=== PATIENT | male | born 1985 | race Caucasian/White ===

== ENCOUNTER 2018-03-05 20:29 | Emergency (ER) | payer OTHER ==
[~2018-03-05] VITALS: Ht 185.4 cm; Wt 117.9 kg
[~2018-03-05 20:29] MED LIST: AUGMENTIN 875 M1 TAB PO; CLARITIN10 MG PO; CORDROL20 MG PO; FLEXERIL10 MG PO; HYDROCODONE BIT1 T11 PO; MOTRIN800 MG PO; NKHM; TORADOL10 MG PO; TYLENOL650 M1 PO; ZITHROMAX Z PA250 MG PO
[2018-03-05 20:34] VITALS: BP 142/64
[2018-03-05 20:49] LABS: BILIRUBIN NEGATIVE (NEGATIVE); BLOOD 1+ (NEGATIVE); CLARITY SL CLOUDY (CLEAR); COLOR YELLOW (YELLOW); GLUCOSE NEGATIVE (NEGATIVE); KETONE NEGATIVE (NEGATIVE); LEUKO ESTERASE TRACE (NEGATIVE); NITRITE NEGATIVE (NEGATIVE); PH 6.5 (5.0-9.0); SPECIFIC GRAVITY <= 1.005 (1.005-1.030); UROBILINOGEN 0.2 E.U./dl (0.2-1.0)
[2018-03-05 21:04] LABS: BACTERIA TRACE
[2018-03-05 21:09] LABS: BASO # 0.1 10*3/uL (0.0-0.1); BASO % 0.6 % (0.0-1.0); EOS # 0.1 10*3/uL (0.0-0.4); EOS % 0.5 % (1.0-4.0); HEMATOCRIT 44.2 % (42.0-52.0); HEMOGLOBIN 15.3 g/dl (14.0-18.0); LYMPH # 2.7 10*3/uL (1.3-4.4); LYMPH % 25.1 % (27.0-41.0); MEAN CORPUSCULAR HGB 29.1 pg (27.0-31.0); MEAN CORPUSCULAR HGB CONC 34.6 g/dl (33.0-37.0); MEAN PLATELET VOLUME 10.1 fl (9.6-12.3); MONO # 0.9 10*3/uL (0.1-1.0); MONO % 8.7 % (3.0-9.0); NEUT # 6.9 10*3/uL (2.3-7.9); NEUT % 64.8 % (47.0-73.0); PLATELET COUNT AUTOMATED 294 10*3/uL (130-400); RED BLOOD COUNT 5.26 10*6/uL (4.50-5.90); RED CELL DISTRI WIDTH 12.6 % (0-14.5); WHITE BLOOD COUNT 10.6 10*3/uL (4.8-10.8)
[2018-03-05 21:26] LABS: ALBUMIN 4.4 gm/dl (3.1-4.5); ALKALINE PHOSPHATASE 73 U/L (45-117); BUN 8 mg/dl (7-24); CHLORIDE 102 mmol/L (98-107); CREATININE 1.15 mg/dL (0.70-1.30); POTASSIUM 3.6 mmol/L (3.5-5.1); SGOT/AST 21 IU/L (3-35); SGPT/ALT 36 U/L (12-78); SODIUM 141 mmol/L (136-145); TOTAL PROTEIN 8.1 gm/dL (6.4-8.2)
[2018-03-05] MEDS ORDERED: CIPRO500 MG PO (21:50)
== END 2018-03-05 21:55 | disposition home or self-care (01) ==
LOC: ED 20:29
PROVIDERS: Emergency Medicine; Nurse Practitioner Family
DX: N39.0 Urinary tract infection, site not specified (principal); R31.9 Hematuria, unspecified; Z90.49 Acquired absence of other specified parts of digestive tract

== ENCOUNTER 2018-04-05 19:44 | Emergency (ER) | payer OTHER ==
[~2018-04-05] VITALS: Ht 185.4 cm; Wt 117.9 kg
--- NOTE | ~2018-04-05 | EKG ---
[place], [place] ELECTROCARDIOGRAM REPORT NAME: HANG STRICKLAND UNIT #: [id number] ROOM: DOCTOR: GUY ABBASI MD BIRTHDATE: [birth year] DOS: 04/05/2018 TIME: 2003 hours. Normal sinus rhythm at 85 beats per minute. The tracing is normal. No previous tracing is available for comparison. GUY ABBASI MD CM:EKGRPT:ELECTROCARDIOGRAM REPORT [id number] GUY ABBASI MD
[~2018-04-05 19:44] MED LIST changes: +CIPRO500 MG PO
[2018-04-05 19:46] VITALS: BP 171/101
[2018-04-05 20:06] LABS: BASO # 0.1 10*3/uL (0.0-0.1); BASO % 0.6 % (0.0-1.0); EOS % 0.4 % (1.0-4.0); HEMATOCRIT 44.7 % (42.0-52.0); HEMOGLOBIN 15.1 g/dl (14.0-18.0); LYMPH # 2.3 10*3/uL (1.3-4.4); MEAN CORPUSCULAR HGB 28.4 pg (27.0-31.0); MEAN CORPUSCULAR HGB CONC 33.8 g/dl (33.0-37.0); MEAN PLATELET VOLUME 10.1 fl (9.6-12.3); MONO # 0.9 10*3/uL (0.1-1.0); MONO % 7.8 % (3.0-9.0); NEUT # 7.6 10*3/uL (2.3-7.9); NEUT % 69.9 % (47.0-73.0); PLATELET COUNT AUTOMATED 285 10*3/uL (130-400); RED BLOOD COUNT 5.32 10*6/uL (4.50-5.90); RED CELL DISTRI WIDTH 12.6 % (0-14.5); WHITE BLOOD COUNT 10.9 10*3/uL (4.8-10.8)
[2018-04-05 20:16] LABS: ACT PARTIAL THROMBO TIME 25.1 SECONDS (20.8-31.5)
[2018-04-05 20:23] LABS: ALBUMIN 4.2 gm/dl (3.1-4.5); ALKALINE PHOSPHATASE 66 U/L (45-117); BUN 9 mg/dl (7-24); CHLORIDE 106 mmol/L (98-107); CREATININE 1.11 mg/dL (0.70-1.30); POTASSIUM 3.5 mmol/L (3.5-5.1); SGOT/AST 18 IU/L (3-35); SGPT/ALT 42 U/L (12-78); SODIUM 143 mmol/L (136-145); TOTAL PROTEIN 7.9 gm/dL (6.4-8.2)
[2018-04-05 20:24] LABS: TROPONIN I < 0.015 ng/ml (<0.045)
[2018-04-05] MEDS ORDERED: PREDNISONE50 MG PO (20:52)
[2018-05-21] MEDS ORDERED: PREDNISONE20 M1 PO (21:07)
[2018-05-21] MEDS ORDERED: CYCLOBENZAPRINE10 MG PO (21:07)
== END 2018-04-05 21:22 | disposition home or self-care (01) ==
LOC: ED 19:44
PROVIDERS: Student in an Organized Health Care Education/Training Program
DX: G51.0 Bell's palsy (principal); Z90.49 Acquired absence of other specified parts of digestive tract

== ENCOUNTER 2019-06-04 03:24 | Emergency (ER) | payer OTHER ==
[~2019-06-04] VITALS: Ht 185.4 cm; Wt 117.9 kg
--- NOTE | ~2019-06-04 | EKG ---
[place], [place] ELECTROCARDIOGRAM REPORT NAME: HANG STRICKLAND UNIT #: [id number] ROOM: DOCTOR: EPIPHANY DRAFT REPORT BIRTHDATE: [birth year] [facility] Test Date: 2019-06-04 Test Time: 03:55:38 Pat Name: HANG STRICKLAND Department: Room: Gender: [employer] Up: : 1985 Requested By: DANIELLE ACE Order Number: [id number] Reading MD: Karie Chavez MD Measurements Intervals [place] Rate: 72 P: 12 WA: 167 QRS: 25 QRSD: 89 T: 17 QT: 429 QTc: 470 Interpretive Statements Sinus rhythm Borderline prolonged QT interval Baseline wander in lead(s) V1,V2 Compared to ECG 05/21/2018 20:18:10 No significant changes Electronically Signed On 06-09-2019 7:42:06 PDT by Karie Chavez MD CM:EKGRPT:ELECTROCARDIOGRAM REPORT [id number] DANIELLE PEREZ DRAFT REPORT DANIELLE ACE DO
[~2019-06-04 03:24] MED LIST changes: +CYCLOBENZAPRINE10 MG PO; +PREDNISONE20 M1 PO; +PREDNISONE50 MG PO
[2019-06-04 03:58] VITALS: BP 156/98
[2019-06-04 04:00] LABS: BASO # 0.1 10*3/uL (0.0-0.1); BASO % 0.7 % (0.0-1.0); EOS # 0.2 10*3/uL (0.0-0.4); EOS % 1.6 % (1.0-4.0); HEMATOCRIT 43.6 % (42.0-52.0); HEMOGLOBIN 14.9 g/dl (14.0-18.0); LYMPH # 2.9 10*3/uL (1.3-4.4); LYMPH % 31.2 % (27.0-41.0); MEAN CELL VOLUME 85.5 fl (80.0-94.0); MEAN CORPUSCULAR HGB 29.2 pg (27.0-31.0); MEAN CORPUSCULAR HGB CONC 34.2 g/dl (33.0-37.0); MEAN PLATELET VOLUME 10.1 fl (9.6-12.3); MONO # 1.1 10*3/uL (0.1-1.0); NEUT # 5.1 10*3/uL (2.3-7.9); NEUT % 54.1 % (47.0-73.0); PLATELET COUNT AUTOMATED 274 10*3/uL (130-400); RED CELL DISTRI WIDTH 12.5 % (0-14.5); WHITE BLOOD COUNT 9.4 10*3/uL (4.8-10.8)
[2019-06-04 04:18] LABS: ALBUMIN 3.9 gm/dl (3.1-4.5); ALKALINE PHOSPHATASE 69 U/L (45-117); BUN 10 mg/dl (7-24); CHLORIDE 106 mmol/L (98-107); CREATININE 0.97 mg/dL (0.70-1.30); POTASSIUM 3.4 mmol/L (3.5-5.1); SGOT/AST 23 IU/L (3-35); SGPT/ALT 39 U/L (12-78); SODIUM 140 mmol/L (136-145); TOTAL PROTEIN 7.3 gm/dL (6.4-8.2); TROPONIN I < 0.015 ng/ml (<0.045)
== END 2019-06-04 04:44 | disposition home or self-care (01) ==
LOC: ED 03:24
PROVIDERS: Student in an Organized Health Care Education/Training Program
DX: R51 Headache (principal); R06.02 Shortness of breath; Z79.899 Other long term (current) drug therapy; Z79.2 Long term (current) use of antibiotics; Z90.49 Acquired absence of other specified parts of digestive tract

== ENCOUNTER 2019-10-08 20:22 | Emergency (ER) | payer OTHER ==
[~2019-10-08] VITALS: Ht 185.4 cm; Wt 124.7 kg
[2019-10-08 20:32] VITALS: BP 154/98
== END 2019-10-08 22:36 | disposition home or self-care (01) ==
LOC: ED 20:22
DX: S93.401A Sprain of unspecified ligament of right ankle, initial encounter (principal); W19.XXXA Unspecified fall, initial encounter; Y93.72 Activity, wrestling; Y92.89 Other specified places as the place of occurrence of the external cause; Y99.8 Other external cause status

== ENCOUNTER 2021-06-18 19:24 | Observation (INO) | payer OTHER ==
[~2021-06-18] VITALS: Ht 185.4 cm; Wt 118.8 kg
[2021-06-18 20:59] VITALS: BP 120/70
[2021-06-18 22:20] LABS: BASO % 0.1 % (0.0-1.0); HEMATOCRIT 46.2 % (42.0-52.0); LYMPH # 0.5 10*3/uL (1.3-4.4); MEAN CELL VOLUME 82.4 fl (80.0-94.0); MEAN CORPUSCULAR HGB 28.2 pg (27.0-31.0); MEAN CORPUSCULAR HGB CONC 34.2 g/dl (33.0-37.0); MEAN PLATELET VOLUME 10.9 fl (9.6-12.3); MONO # 0.9 10*3/uL (0.1-1.0); MONO % 8.9 % (3.0-9.0); NEUT # 8.5 10*3/uL (2.3-7.9); NEUT % 85.5 % (47.0-73.0); PLATELET COUNT AUTOMATED 195 10*3/uL (130-400); RED BLOOD COUNT 5.61 10*6/uL (4.50-5.90); RED CELL DISTRI WIDTH 12.7 % (0-14.5); WHITE BLOOD COUNT 9.9 10*3/uL (4.8-10.8)
[2021-06-18 22:28] VITALS: BP 133/92
[2021-06-18 23:04] LABS: ALBUMIN 3.3 gm/dl (3.1-4.5); ALKALINE PHOSPHATASE 46 U/L (45-117); BUN 19 mg/dl (7-24); CHLORIDE 97 mmol/L (98-107); CREATININE 0.98 mg/dL (0.70-1.30); SGOT/AST 125 IU/L (3-35); SODIUM 135 mmol/L (136-145); TOTAL PROTEIN 7.8 gm/dL (6.4-8.2)
[2021-06-18 23:09] LABS: SGPT/ALT 72 U/L (12-78)
[2021-06-18 23:20] LABS: ABG BASE EXCESS 4.2 mmol/L (-2.0-2.0); ARTERIAL BLOOD GAS PH 7.481 (7.35-7.45); ARTERIAL BLOOD GAS PO2 65.4 (80-90)
[2021-06-19] VITALS (8 sets, daily range): BP systolic 90–149; BP diastolic 42–89
[2021-06-19 06:17] LABS: BASO % 0.1 % (0.0-1.0); HEMATOCRIT 46.9 % (42.0-52.0); LYMPH # 0.7 10*3/uL (1.3-4.4); LYMPH % 8.6 % (27.0-41.0); MEAN CELL VOLUME 83.2 fl (80.0-94.0); MEAN CORPUSCULAR HGB 27.7 pg (27.0-31.0); MEAN CORPUSCULAR HGB CONC 33.3 g/dl (33.0-37.0); MEAN PLATELET VOLUME 11.2 fl (9.6-12.3); MONO # 0.6 10*3/uL (0.1-1.0); MONO % 6.8 % (3.0-9.0); NEUT # 7.1 10*3/uL (2.3-7.9); NEUT % 83.8 % (47.0-73.0); PLATELET COUNT AUTOMATED 207 10*3/uL (130-400); RED BLOOD COUNT 5.64 10*6/uL (4.50-5.90); RED CELL DISTRI WIDTH 12.8 % (0-14.5); WHITE BLOOD COUNT 8.4 10*3/uL (4.8-10.8)
[2021-06-19 06:27] LABS: BUN 18 mg/dl (7-24); CHLORIDE 99 mmol/L (98-107); POTASSIUM 3.6 mmol/L (3.5-5.1); SODIUM 135 mmol/L (136-145)
[2021-06-19 06:36] LABS: ACT PARTIAL THROMBO TIME 27.4 SECONDS (20.0-32.1)
[2021-06-19 06:38] LABS: ALKALINE PHOSPHATASE 45 U/L (45-117); CHOLESTEROL 144 mg/dL (<200); CREATININE 0.86 mg/dL (0.70-1.30); LDL CHOLESTEROL 78 mg/dL (9-159); SGOT/AST 112 IU/L (3-35); SGPT/ALT 65 U/L (12-78); THYROID STIM HORMONE (HS) 0.647 uIU/ml (0.358-4.75); TOTAL PROTEIN 7.7 gm/dL (6.4-8.2); TRIGLYCERIDES 206 mg/dl (<150)
[2021-06-19 09:19] LABS: VITAMIN D, 25-HYDROXY 27.1 ng/mL (30-100)
[2021-06-19] MEDS ORDERED: CYCLOBENZAPRINE5 M3 PO (09:56)
[2021-06-19] MEDS ORDERED: OMEPRAZOLE40 MG PO (09:56)
[2021-06-19] MEDS ORDERED: LOSARTAN-HCTZ1 EACH PO (09:56)
[2021-06-19] MEDS ORDERED: VITAMIN D31250 MC1 PO (09:57)
[2021-06-20] VITALS: BP 98/50
[2021-06-20 04:00] VITALS: BP 103/69
[2021-06-20 06:06] LABS: BASO % 0.1 % (0.0-1.0); LYMPH # 1.1 10*3/uL (1.3-4.4); LYMPH % 14.2 % (27.0-41.0); MEAN CELL VOLUME 84.3 fl (80.0-94.0); MEAN CORPUSCULAR HGB 27.9 pg (27.0-31.0); MEAN CORPUSCULAR HGB CONC 33.1 g/dl (33.0-37.0); MEAN PLATELET VOLUME 11.3 fl (9.6-12.3); MONO # 0.4 10*3/uL (0.1-1.0); MONO % 4.8 % (3.0-9.0); NEUT # 6.1 10*3/uL (2.3-7.9); NEUT % 80.2 % (47.0-73.0); PLATELET COUNT AUTOMATED 240 10*3/uL (130-400); RED BLOOD COUNT 5.34 10*6/uL (4.50-5.90); RED CELL DISTRI WIDTH 12.8 % (0-14.5); WHITE BLOOD COUNT 7.5 10*3/uL (4.8-10.8)
[2021-06-20 06:13] LABS: ALBUMIN 2.8 gm/dl (3.1-4.5); BUN 24 mg/dl (7-24); CHLORIDE 104 mmol/L (98-107); CREATININE 0.85 mg/dL (0.70-1.30); LDH 978 U/L (87-241); POTASSIUM 3.7 mmol/L (3.5-5.1); SGOT/AST 77 IU/L (3-35); SGPT/ALT 57 U/L (12-78); SODIUM 139 mmol/L (136-145); TOTAL PROTEIN 7.3 gm/dL (6.4-8.2)
[2021-06-20 06:15] LABS: ALKALINE PHOSPHATASE 46 U/L (45-117)
[2021-06-20 08:00] VITALS: BP 105/74
[2021-06-20 12:00] VITALS: BP 116/63
[2021-06-20 16:00] VITALS: BP 134/79
[2021-06-20 20:00] VITALS: BP 114/87
[2021-06-21] VITALS: BP 104/52
[2021-06-21 04:00] VITALS: BP 123/51
[2021-06-21 05:59] LABS: ALBUMIN 2.9 gm/dl (3.1-4.5); ALKALINE PHOSPHATASE 51 U/L (45-117); BUN 22 mg/dl (7-24); CHLORIDE 105 mmol/L (98-107); CREATININE 0.85 mg/dL (0.70-1.30); LDH 972 U/L (87-241); POTASSIUM 3.7 mmol/L (3.5-5.1); SGOT/AST 70 IU/L (3-35); SGPT/ALT 61 U/L (12-78); SODIUM 141 mmol/L (136-145); TOTAL PROTEIN 6.8 gm/dL (6.4-8.2)
[2021-06-21 06:19] LABS: EOS % 0.1 % (1.0-4.0); HEMATOCRIT 46.4 % (42.0-52.0); LYMPH # 1.2 10*3/uL (1.3-4.4); LYMPH % 16.1 % (27.0-41.0); MEAN CELL VOLUME 85.1 fl (80.0-94.0); MEAN CORPUSCULAR HGB 27.7 pg (27.0-31.0); MEAN CORPUSCULAR HGB CONC 32.5 g/dl (33.0-37.0); MEAN PLATELET VOLUME 10.4 fl (9.6-12.3); MONO # 0.5 10*3/uL (0.1-1.0); MONO % 6.5 % (3.0-9.0); NEUT # 5.8 10*3/uL (2.3-7.9); NEUT % 76.5 % (47.0-73.0); PLATELET COUNT AUTOMATED 261 10*3/uL (130-400); RED BLOOD COUNT 5.45 10*6/uL (4.50-5.90); WHITE BLOOD COUNT 7.6 10*3/uL (4.8-10.8)
[2021-06-21 08:00] VITALS: BP 165/91
[2021-06-21 12:00] VITALS: BP 169/91
[2021-06-21 16:00] VITALS: BP 155/100
[2021-06-21 20:00] VITALS: BP 169/102
[2021-06-22] VITALS: BP 107/40
[2021-06-22 04:00] VITALS: BP 117/66
[2021-06-22 06:26] LABS: ALKALINE PHOSPHATASE 64 U/L (45-117); BUN 21 mg/dl (7-24); CHLORIDE 109 mmol/L (98-107); CREATININE 0.86 mg/dL (0.70-1.30); LDH 880 U/L (87-241); POTASSIUM 3.9 mmol/L (3.5-5.1); SGOT/AST 74 IU/L (3-35); SGPT/ALT 78 U/L (12-78); SODIUM 142 mmol/L (136-145); TOTAL PROTEIN 7.4 gm/dL (6.4-8.2)
[2021-06-22 06:30] LABS: BASO % 0.3 % (0.0-1.0); EOS # 0.1 10*3/uL (0.0-0.4); EOS % 0.6 % (1.0-4.0); HEMATOCRIT 47.3 % (42.0-52.0); LYMPH # 1.4 10*3/uL (1.3-4.4); LYMPH % 12.1 % (27.0-41.0); MEAN CELL VOLUME 86.5 fl (80.0-94.0); MEAN CORPUSCULAR HGB CONC 32.3 g/dl (33.0-37.0); MEAN PLATELET VOLUME 10.3 fl (9.6-12.3); MONO # 0.6 10*3/uL (0.1-1.0); MONO % 5.2 % (3.0-9.0); NEUT # 9.4 10*3/uL (2.3-7.9); NEUT % 80.9 % (47.0-73.0); PLATELET COUNT AUTOMATED 310 10*3/uL (130-400); RED BLOOD COUNT 5.47 10*6/uL (4.50-5.90); RED CELL DISTRI WIDTH 13.1 % (0-14.5); WHITE BLOOD COUNT 11.7 10*3/uL (4.8-10.8)
[2021-06-22 08:00] VITALS: BP 123/58
[2021-06-22 16:00] VITALS: BP 132/76
[2021-06-22 20:00] VITALS: BP 150/96
[2021-06-23] VITALS (7 sets, daily range): BP systolic 141–173; BP diastolic 81–117
[2021-06-23 06:23] LABS: BASO # 0.1 10*3/uL (0.0-0.1); BASO % 0.5 % (0.0-1.0); EOS # 0.3 10*3/uL (0.0-0.4); EOS % 2.4 % (1.0-4.0); HEMATOCRIT 48.7 % (42.0-52.0); LYMPH # 1.3 10*3/uL (1.3-4.4); LYMPH % 10.7 % (27.0-41.0); MEAN CELL VOLUME 86.2 fl (80.0-94.0); MEAN CORPUSCULAR HGB CONC 32.4 g/dl (33.0-37.0); MEAN PLATELET VOLUME 10.1 fl (9.6-12.3); MONO # 0.8 10*3/uL (0.1-1.0); MONO % 6.4 % (3.0-9.0); NEUT # 9.8 10*3/uL (2.3-7.9); NEUT % 78.3 % (47.0-73.0); PLATELET COUNT AUTOMATED 276 10*3/uL (130-400); RED BLOOD COUNT 5.65 10*6/uL (4.50-5.90); RED CELL DISTRI WIDTH 12.8 % (0-14.5); WHITE BLOOD COUNT 12.5 10*3/uL (4.8-10.8)
[2021-06-23 06:24] LABS: ALBUMIN 3.1 gm/dl (3.1-4.5); ALKALINE PHOSPHATASE 55 U/L (45-117); BUN 21 mg/dl (7-24); CHLORIDE 105 mmol/L (98-107); CREATININE 1.09 mg/dL (0.70-1.30); LDH 873 U/L (87-241); POTASSIUM 4.2 mmol/L (3.5-5.1); SGOT/AST 66 IU/L (3-35); SGPT/ALT 86 U/L (12-78); SODIUM 138 mmol/L (136-145); TOTAL PROTEIN 6.9 gm/dL (6.4-8.2)
[2021-06-24] VITALS: BP 160/90
[2021-06-24 02:35] VITALS: BP 114/62
[2021-06-24 05:39] LABS: ALBUMIN 2.9 gm/dl (3.1-4.5); ALKALINE PHOSPHATASE 65 U/L (45-117); BUN 20 mg/dl (7-24); CHLORIDE 107 mmol/L (98-107); CREATININE 0.83 mg/dL (0.70-1.30); LDH 957 U/L (87-241); POTASSIUM 4.1 mmol/L (3.5-5.1); SGOT/AST 61 IU/L (3-35); SGPT/ALT 89 U/L (12-78); SODIUM 139 mmol/L (136-145); TOTAL PROTEIN 6.9 gm/dL (6.4-8.2)
[2021-06-24 06:02] LABS: HEMATOCRIT 47.8 % (42.0-52.0); MEAN CELL VOLUME 85.2 fl (80.0-94.0); MEAN CORPUSCULAR HGB CONC 32.8 g/dl (33.0-37.0); MEAN PLATELET VOLUME 10.4 fl (9.6-12.3); PLATELET COUNT AUTOMATED 259 10*3/uL (130-400); RED BLOOD COUNT 5.61 10*6/uL (4.50-5.90); RED CELL DISTRI WIDTH 12.8 % (0-14.5); WHITE BLOOD COUNT 14.8 10*3/uL (4.8-10.8)
[2021-06-24 06:51] LABS: PLATELET SUFFICIENCY NORMAL (NORMAL); TOTAL CELLS COUNTED 100 #CELLS
[2021-06-24 08:00] VITALS: BP 141/85
[2021-06-24 12:00] VITALS: BP 151/101
[2021-06-24 16:00] VITALS: BP 153/102
[2021-06-24 20:00] VITALS: BP 161/97
[2021-06-25] VITALS: BP 149/89
[2021-06-25 04:00] VITALS: BP 137/84
[2021-06-25 05:59] LABS: ALBUMIN 3.1 gm/dl (3.1-4.5); BUN 20 mg/dl (7-24); CHLORIDE 103 mmol/L (98-107); SODIUM 137 mmol/L (136-145)
[2021-06-25 06:03] LABS: ALKALINE PHOSPHATASE 77 U/L (45-117); CREATININE 0.79 mg/dL (0.70-1.30); SGOT/AST 63 IU/L (3-35); SGPT/ALT 83 U/L (12-78); TOTAL PROTEIN 7.1 gm/dL (6.4-8.2)
[2021-06-25 06:23] LABS: MEAN CELL VOLUME 84.7 fl (80.0-94.0); MEAN CORPUSCULAR HGB 27.8 pg (27.0-31.0); MEAN CORPUSCULAR HGB CONC 32.8 g/dl (33.0-37.0); MEAN PLATELET VOLUME 10.5 fl (9.6-12.3); PLATELET COUNT AUTOMATED 280 10*3/uL (130-400); RED CELL DISTRI WIDTH 12.8 % (0-14.5); WHITE BLOOD COUNT 15.6 10*3/uL (4.8-10.8)
[2021-06-25 07:15] LABS: PLATELET SUFFICIENCY NORMAL (NORMAL); TOTAL CELLS COUNTED 100 #CELLS
[2021-06-25 08:00] VITALS: BP 151/101
[2021-06-25 12:00] VITALS: BP 130/86
[2021-06-25 16:00] VITALS: BP 143/92
[2021-06-25 20:00] VITALS: BP 139/97
[2021-06-26] VITALS: BP 153/93
[2021-06-26 04:00] VITALS: BP 148/88
[2021-06-26 06:08] LABS: ALBUMIN 3.2 gm/dl (3.1-4.5); ALKALINE PHOSPHATASE 73 U/L (45-117); BUN 25 mg/dl (7-24); CHLORIDE 102 mmol/L (98-107); POTASSIUM 4.4 mmol/L (3.5-5.1); SGOT/AST 57 IU/L (3-35); SGPT/ALT 91 U/L (12-78); SODIUM 136 mmol/L (136-145); TOTAL PROTEIN 7.4 gm/dL (6.4-8.2)
[2021-06-26 07:22] LABS: MEAN CELL VOLUME 86.3 fl (80.0-94.0); MEAN CORPUSCULAR HGB 27.7 pg (27.0-31.0); MEAN CORPUSCULAR HGB CONC 32.2 g/dl (33.0-37.0); MEAN PLATELET VOLUME 10.5 fl (9.6-12.3); PLATELET COUNT AUTOMATED 309 10*3/uL (130-400); RED BLOOD COUNT 5.91 10*6/uL (4.50-5.90); WHITE BLOOD COUNT 18.7 10*3/uL (4.8-10.8)
[2021-06-26 08:00] VITALS: BP 137/89
[2021-06-26 08:31] LABS: ATYPICAL LYMPHS 1 % (0-0); PLATELET SUFFICIENCY NORMAL (NORMAL); TOTAL CELLS COUNTED 100 #CELLS
[2021-06-26 12:00] VITALS: BP 128/89
[2021-06-26 16:00] VITALS: BP 134/80
[2021-06-26 20:00] VITALS: BP 141/84
[2021-06-27] VITALS: BP 149/91
[2021-06-27 04:00] VITALS: BP 108/51
[2021-06-27 06:13] LABS: HEMATOCRIT 50.8 % (42.0-52.0); MEAN CELL VOLUME 85.1 fl (80.0-94.0); MEAN CORPUSCULAR HGB CONC 32.9 g/dl (33.0-37.0); MEAN PLATELET VOLUME 10.3 fl (9.6-12.3); PLATELET COUNT AUTOMATED 326 10*3/uL (130-400); RED BLOOD COUNT 5.97 10*6/uL (4.50-5.90); WHITE BLOOD COUNT 21.7 10*3/uL (4.8-10.8)
[2021-06-27 06:35] LABS: BUN 24 mg/dl (7-24); CHLORIDE 102 mmol/L (98-107); CREATININE 0.92 mg/dL (0.70-1.30); LDH 780 U/L (87-241); SODIUM 134 mmol/L (136-145)
[2021-06-27 08:00] VITALS: BP 130/93; BP 137/66
[2021-06-27 08:12] LABS: BASOPHILS 1 % (0-1); PLATELET SUFFICIENCY NORMAL (NORMAL); TOTAL CELLS COUNTED 100 #CELLS
[2021-06-27 12:00] VITALS: BP 123/77
[2021-06-27 16:00] VITALS: BP 125/74
[2021-06-27 20:00] VITALS: BP 119/73
[2021-06-28] VITALS: BP 118/70
[2021-06-28 04:00] VITALS: BP 127/81
[2021-06-28 06:31] LABS: HEMATOCRIT 48.9 % (42.0-52.0); MEAN CORPUSCULAR HGB 27.8 pg (27.0-31.0); MEAN CORPUSCULAR HGB CONC 33.1 g/dl (33.0-37.0); MEAN PLATELET VOLUME 10.5 fl (9.6-12.3); PLATELET COUNT AUTOMATED 382 10*3/uL (130-400); RED BLOOD COUNT 5.82 10*6/uL (4.50-5.90); RED CELL DISTRI WIDTH 13.1 % (0-14.5)
[2021-06-28 06:39] LABS: ALBUMIN 3.3 gm/dl (3.1-4.5); BUN 22 mg/dl (7-24); CHLORIDE 101 mmol/L (98-107); CREATININE 0.84 mg/dL (0.70-1.30); LDH 752 U/L (87-241); POTASSIUM 3.8 mmol/L (3.5-5.1); SGOT/AST 46 IU/L (3-35); SGPT/ALT 86 U/L (12-78); SODIUM 135 mmol/L (136-145)
[2021-06-28 06:42] LABS: ALKALINE PHOSPHATASE 68 U/L (45-117)
[2021-06-28 07:15] LABS: PLATELET SUFFICIENCY NORMAL (NORMAL); TOTAL CELLS COUNTED 100 #CELLS
[2021-06-28 08:00] VITALS: BP 116/81
[2021-06-28 12:00] VITALS: BP 120/80
[2021-06-28 16:00] VITALS: BP 127/78
[2021-06-28 20:00] VITALS: BP 120/69
[2021-06-29] VITALS: BP 112/48
[2021-06-29 09:00] VITALS: BP 118/72
[2021-06-29 12:00] VITALS: BP 103/76; BP 112/61
[2021-06-29 16:00] VITALS: BP 127/65
[2021-06-29 20:00] VITALS: BP 107/68
[2021-06-30] VITALS: BP 114/70
[2021-06-30 08:00] VITALS: BP 109/63
[2021-06-30 12:00] VITALS: BP 108/71
[2021-06-30 16:00] VITALS: BP 117/62
[2021-06-30 20:00] VITALS: BP 127/67
[2021-07-01] VITALS: BP 117/61
[2021-07-01 06:21] LABS: HEMATOCRIT 45.3 % (42.0-52.0); MEAN CELL VOLUME 86.3 fl (80.0-94.0); MEAN CORPUSCULAR HGB 28.4 pg (27.0-31.0); MEAN CORPUSCULAR HGB CONC 32.9 g/dl (33.0-37.0); MEAN PLATELET VOLUME 10.5 fl (9.6-12.3); PLATELET COUNT AUTOMATED 409 10*3/uL (130-400); RED BLOOD COUNT 5.25 10*6/uL (4.50-5.90); RED CELL DISTRI WIDTH 13.2 % (0-14.5); WHITE BLOOD COUNT 15.7 10*3/uL (4.8-10.8)
[2021-07-01 06:25] LABS: ALBUMIN 2.9 gm/dl (3.1-4.5); ALKALINE PHOSPHATASE 67 U/L (45-117); BUN 16 mg/dl (7-24); CHLORIDE 101 mmol/L (98-107); CREATININE 0.85 mg/dL (0.70-1.30); LDH 470 U/L (87-241); POTASSIUM 3.7 mmol/L (3.5-5.1); SGOT/AST 18 IU/L (3-35); SGPT/ALT 58 U/L (12-78); SODIUM 135 mmol/L (136-145); TOTAL PROTEIN 7.1 gm/dL (6.4-8.2)
[2021-07-01 07:37] LABS: BASOPHILS 1 % (0-1); PLATELET SUFFICIENCY HIGH (NORMAL); TOTAL CELLS COUNTED 100 #CELLS
[2021-07-01 08:00] VITALS: BP 120/74
[2021-07-01 12:00] VITALS: BP 125/65; BP 141/90
[2021-07-01 16:00] VITALS: BP 130/64
[2021-07-01 20:00] VITALS: BP 103/62
[2021-07-02] VITALS: BP 114/60
[2021-07-02 08:00] VITALS: BP 120/62
[2021-07-02 12:00] VITALS: BP 102/77
[2021-07-02 16:00] VITALS: BP 111/67
[2021-07-02 20:00] VITALS: BP 139/44
[2021-07-03] VITALS: BP 117/87
[2021-07-03 08:00] VITALS: BP 126/85
[2021-07-03 12:00] VITALS: BP 112/70; BP 126/85
[2021-07-03 16:00] VITALS: BP 114/52
[2021-07-03 20:00] VITALS: BP 118/67
[2021-07-04] VITALS: BP 123/72
[2021-07-04 08:00] VITALS: BP 106/64
[2021-07-04 12:00] VITALS: BP 106/64
[2021-07-04 16:00] VITALS: BP 107/68
[2021-07-04 20:00] VITALS: BP 118/57
[2021-07-05] VITALS: BP 103/62
[2021-07-05 07:57] VITALS: BP 98/55
[2021-07-05 12:00] VITALS: BP 133/89
== END 2021-07-05 14:44 | disposition home or self-care (01) ==
LOC: ED 19:24 → ICCU 23:55 → EDHOLD 23:55 → ICCU 23:55 → EDHOLD 06-19 07:10 → ICCU 06-19 09:41 → 4E 06-28 21:30
PROVIDERS: Emergency Medicine; Hospitalist; Internal Medicine; Nurse Practitioner; Student in an Organized Health Care Education/Training Program; ADMIT Internal Medicine; ATTEND Internal Medicine
DX: U07.1 COVID-19 (principal); A41.9 Sepsis, unspecified organism; J12.82 Pneumonia due to coronavirus disease 2019; J96.01 Acute respiratory failure with hypoxia; E87.1 Hypo-osmolality and hyponatremia; E87.6 Hypokalemia; R70.0 Elevated erythrocyte sedimentation rate; R74.01 Elevation of levels of liver transaminase levels; R79.82 Elevated C-reactive protein (CRP); R74.02 Elevation of levels of lactic acid dehydrogenase [LDH]; R79.89 Other specified abnormal findings of blood chemistry; K21.9 Gastro-esophageal reflux disease without esophagitis; I10 Essential (primary) hypertension; E66.9 Obesity, unspecified; D72.829 Elevated white blood cell count, unspecified; Z79.01 Long term (current) use of anticoagulants; Z79.899 Other long term (current) drug therapy

== ENCOUNTER → 2021-10-08 | Outpatient (CLI) | payer OTHER ==
[~2021-10-08] MED LIST changes: +CYCLOBENZAPRINE5 M3 PO; +LOSARTAN-HCTZ1 EACH PO; +OMEPRAZOLE40 MG PO; +VITAMIN D31250 MC1 PO
== END | disposition home or self-care (01) ==
LOC: COVID19 15:16
PROVIDERS: ATTEND Internal Medicine
DX: U07.1 COVID-19 (principal)

== ENCOUNTER → 2023-08-15 | Outpatient (CLI) | payer OTHER ==
[2023-08-15 07:30] LABS: HEMATOCRIT 46.5 % (42.0-52.0); MEAN CELL VOLUME 83.3 fl (80.0-94.0); MEAN CORPUSCULAR HGB 28.7 pg (27.0-31.0); MEAN CORPUSCULAR HGB CONC 34.4 g/dl (33.0-37.0); MEAN PLATELET VOLUME 9.9 fl (9.6-12.3); RED BLOOD COUNT 5.58 10*6/uL (4.50-5.90); RED CELL DISTRI WIDTH 12.7 % (0-14.5); WHITE BLOOD COUNT 8.2 10*3/uL (4.8-10.8)
[2023-08-15 07:47] LABS: URINE CREATININE RANDOM 347.91 mg/dL
[2023-08-15 08:20] LABS: ALKALINE PHOSPHATASE 74 U/L (46-116); BUN 6 mg/dl (9-23); CHLORIDE 106 mmol/L (98-107); POTASSIUM 3.6 mmol/L (3.4-5.1); SGPT/ALT 33 U/L (5-49); TOTAL PROTEIN 7.5 gm/dL (6.0-8.0)
== END | disposition home or self-care (01) ==
LOC: LAB 07:08
PROVIDERS: ATTEND Family Medicine
DX: E11.9 Type 2 diabetes mellitus without complications (principal); I15.2 Hypertension secondary to endocrine disorders

== ENCOUNTER → 2023-11-02 | Outpatient (CLI) | payer OTHER ==
[2023-11-02 17:35] LABS: BASO # 0.1 10*3/uL (0.0-0.1); BASO % 0.8 % (0.0-1.0); EOS # 0.1 10*3/uL (0.0-0.4); HEMATOCRIT 46.5 % (42.0-52.0); LYMPH # 1.9 10*3/uL (1.3-4.4); LYMPH % 18.3 % (27.0-41.0); MEAN CELL VOLUME 84.1 fl (80.0-94.0); MEAN CORPUSCULAR HGB 27.8 pg (27.0-31.0); MEAN CORPUSCULAR HGB CONC 33.1 g/dl (33.0-37.0); MEAN PLATELET VOLUME 9.9 fl (9.6-12.3); MONO # 1.2 10*3/uL (0.1-1.0); MONO % 12.2 % (3.0-9.0); NEUT # 6.8 10*3/uL (2.3-7.9); NEUT % 67.3 % (47.0-73.0); PLATELET COUNT AUTOMATED 306 10*3/uL (130-400); RED BLOOD COUNT 5.53 10*6/uL (4.50-5.90); RED CELL DISTRI WIDTH 12.7 % (0-14.5); WHITE BLOOD COUNT 10.1 10*3/uL (4.8-10.8)
[2023-11-02 17:41] LABS: BILIRUBIN Negative (Negative); BLOOD 2+ (Negative); CLARITY Clear (Clear); COLOR Yellow (Yellow); GLUCOSE Negative (Negative); KETONE Negative (Negative); LEUKO ESTERASE Negative (Negative); NITRITE Negative (Negative); PH 6.5 (4.5-8.0); SPECIFIC GRAVITY 1.015 (1.001-1.030)
[2023-11-02 18:01] LABS: RBC 21-30 rbc/hpf (0-2)
[2023-11-02 18:02] LABS: BACTERIA 1+; MUCOUS 1+
[2023-11-02 18:07] LABS: ALKALINE PHOSPHATASE 83 U/L (46-116); BUN 6 mg/dl (9-23); CHLORIDE 102 mmol/L (98-107); CHOLESTEROL 184 mg/dL (<200); LDL CHOLESTEROL 86 mg/dL (9-159); LIPASE 32 U/L (12-53); POTASSIUM 3.5 mmol/L (3.4-5.1); SGPT/ALT 29 U/L (5-49); TOTAL PROTEIN 7.7 gm/dL (6.0-8.0); TRIGLYCERIDES 335 mg/dl (<150)
== END | disposition home or self-care (01) ==
LOC: LAB 17:05
PROVIDERS: ATTEND Family Medicine
DX: K63.9 Disease of intestine, unspecified (principal); E78.1 Pure hyperglyceridemia

== ENCOUNTER → 2023-12-05 | Outpatient (CLI) | payer OTHER ==
[2023-12-05 08:30] LABS: BILIRUBIN Negative (Negative); BLOOD 2+ (Negative); CLARITY Clear (Clear); COLOR Yellow (Yellow); GLUCOSE Negative (Negative); KETONE Negative (Negative); LEUKO ESTERASE Negative (Negative); NITRITE Negative (Negative); PH 5.5 (4.5-8.0); SPECIFIC GRAVITY 1.025 (1.001-1.030); UROBILINOGEN 0.2 E.U./dl (0.0-1.0)
[2023-12-05 08:42] LABS: MUCOUS 1+
[2023-12-05 08:43] LABS: EPITHELIAL CELLS 0-2; HYALINE CAST 0-2; WBC 0-2 wbc/hpf (0-5)
== END | disposition home or self-care (01) ==
LOC: LAB 07:28 → US 07:30
PROVIDERS: ATTEND Family Medicine
DX: K76.0 Fatty (change of) liver, not elsewhere classified (principal); R10.9 Unspecified abdominal pain; R31.9 Hematuria, unspecified

== ENCOUNTER → 2023-12-13 | Outpatient (CLI) | payer OTHER | END | disposition home or self-care (01) | LOC: US 15:47 | PROVIDERS: ATTEND Family Medicine | DX: N20.0 Calculus of kidney (principal) ==

== ENCOUNTER → 2025-03-01 | Outpatient (CLI) | payer OTHER ==
[2025-03-01 10:17] LABS: ALKALINE PHOSPHATASE 91 U/L (46-116); BUN 11 mg/dl (9-23); CHLORIDE 104 mmol/L (98-107); CHOLESTEROL 177 mg/dL (<200); LDL CHOLESTEROL 108 mg/dL (9-159); POTASSIUM 3.5 mmol/L (3.4-5.1); SGPT/ALT 28 U/L (5-49); TOTAL PROTEIN 7.4 gm/dL (6.0-8.0); TRIGLYCERIDES 180 mg/dl (<150)
== END | disposition home or self-care (01) ==
LOC: LAB 09:34
PROVIDERS: ATTEND Family Medicine
DX: E78.5 Hyperlipidemia, unspecified (principal); E11.59 Type 2 diabetes mellitus with other circulatory complications; I15.2 Hypertension secondary to endocrine disorders